=== PATIENT | female | born 1990 | race Caucasian/White ===

== ENCOUNTER 2016-12-29 05:58 | Emergency (ER) | payer OTHER ==
[~2016-12-29 05:58] MED LIST: COLACE 100MG C100 MG PO
[2016-12-29 08:12] LABS: HEMOGLOBIN 14.1 gm/dl (12.3-15.3); RED BLOOD COUNT 4.91 M/UL (4.00-5.10); WHITE BLOOD COUNT 6.9 K/UL (4.5-11.0)
[2016-12-29 08:37] LABS: BUN/CREATININE RATIO 18 (0-10)
== END 2016-12-29 10:44 | disposition home or self-care (01) ==
LOC: ER1 05:58
PROVIDERS: Emergency Medicine
DX: K29.70 Gastritis, unspecified, without bleeding (principal); F31.9 Bipolar disorder, unspecified; Z79.899 Other long term (current) drug therapy
CPT/HCPCS: 36415; 71010; 76705; 80053; 81001; 82150; 82550; 82553; 83690; 83874; 84484; 84703; 85025; 85610; 85730; 93005; 99284

== ENCOUNTER 2020-12-27 18:10 | Emergency (ER) | payer OTHER ==
[~2020-12-27 18:10] MED LIST changes: +IBU800 MG PO; +KEFLEX CAP 500500 MG PO; +KEFLEX500 MG PO; +ZOFRAN4 MG PO
[2020-12-27] MEDS ORDERED: ZITHROMAX250 MG PO (22:41)
[2020-12-27] MEDS ORDERED: ZYRTEC10 MG PO (22:41)
[2020-12-27] MEDS ORDERED: MUCINEX FA PO (22:41)
== END 2020-12-27 23:10 | disposition home or self-care (01) ==
LOC: ER1 18:10
DX: R05 Cough (principal); R09.81 Nasal congestion; J45.909 Unspecified asthma, uncomplicated; K21.9 Gastro-esophageal reflux disease without esophagitis; Z20.822 Contact with and (suspected) exposure to COVID-19; Z90.49 Acquired absence of other specified parts of digestive tract; Z88.8 Allergy status to other drugs, medicaments and biological substances; Z79.899 Other long term (current) drug therapy
CPT/HCPCS: 0240U; 71046; 99283

== ENCOUNTER 2021-02-04 08:19 | Emergency (ER) | payer OTHER ==
[~2021-02-04 08:19] MED LIST changes: +MUCINEX FA PO; +ZITHROMAX250 MG PO; +ZYRTEC10 MG PO
[2021-02-04] MEDS ORDERED: PROVENTIL HFA6.7 GM INH (10:04)
[2021-02-04] MEDS ORDERED: TESSALON PERLE100 MG PO (10:04)
== END 2021-02-04 10:08 | disposition home or self-care (01) ==
LOC: ER1 08:19
DX: J40 Bronchitis, not specified as acute or chronic (principal); Z79.899 Other long term (current) drug therapy; Z20.822 Contact with and (suspected) exposure to COVID-19
CPT/HCPCS: 0240U; 71045; 87081; 87880; 99283

== ENCOUNTER 2021-04-13 15:11 | Emergency (ER) | payer OTHER ==
[~2021-04-13 15:11] MED LIST changes: +PROVENTIL HFA6.7 GM INH; +TESSALON PERLE100 MG PO
[2021-04-13 16:01] LABS: HEMOGLOBIN 14.9 gm/dl (12.3-15.3); RED BLOOD COUNT 4.84 M/UL (4.00-5.10); WHITE BLOOD COUNT 8.1 K/UL (4.5-11.0)
[2021-04-13] MEDS ORDERED: ZOFRAN ODT 4 MG4 MG SL (16:56)
== END 2021-04-13 17:30 | disposition home or self-care (01) ==
LOC: ER1 15:11
PROVIDERS: Emergency Medicine
DX: R10.9 Unspecified abdominal pain (principal); R11.10 Vomiting, unspecified; R19.7 Diarrhea, unspecified; R51.9 Headache, unspecified; Z90.49 Acquired absence of other specified parts of digestive tract; Z20.822 Contact with and (suspected) exposure to COVID-19
CPT/HCPCS: 80053; 81001; 83690; 84703; 85025; 96374; 99284; J2405; J7030; U0002

== ENCOUNTER 2021-04-20 23:33 | Emergency (ER) | payer OTHER ==
[~2021-04-20 23:33] MED LIST changes: +ZOFRAN ODT 4 MG4 MG SL
[2021-04-21 00:51] LABS: HEMOGLOBIN 13.6 gm/dl (12.3-15.3); RED BLOOD COUNT 4.4 M/UL (4.00-5.10); WHITE BLOOD COUNT 6.3 K/UL (4.5-11.0)
[2021-04-21] MEDS ORDERED: ZOFRAN4 MG PO (03:24)
[2021-04-21] MEDS ORDERED: BENTYL 10MG CAP10 MG PO (03:24)
[2021-04-21] MEDS ORDERED: PROTONIX 40 MG40 M1 PO (03:24)
== END 2021-04-21 03:50 | disposition home or self-care (01) ==
LOC: ER1 23:33
PROVIDERS: Physician Assistant Medical
DX: R10.9 Unspecified abdominal pain (principal); R11.0 Nausea; M54.9 Dorsalgia, unspecified; Z90.49 Acquired absence of other specified parts of digestive tract
CPT/HCPCS: 72050; 72072; 80053; 81001; 83690; 85025; 96374; 99284; J2405

== ENCOUNTER 2021-04-24 09:58 | Emergency (ER) | payer OTHER ==
[~2021-04-24 09:58] MED LIST changes: +BENTYL 10MG CAP10 MG PO; +PROTONIX 40 MG40 M1 PO
[2021-04-24] MEDS ORDERED: MEDROL DOSEPAK 24 MG PO (12:44)
== END 2021-04-24 13:30 | disposition home or self-care (01) ==
LOC: ER1 09:58
DX: M54.12 Radiculopathy, cervical region (principal); Z88.8 Allergy status to other drugs, medicaments and biological substances
CPT/HCPCS: 72125; 96372; 99283; J1100; J1885

== ENCOUNTER → 2021-05-05 | Outpatient (CLI) | payer OTHER ==
[~2021-05-05] MED LIST changes: +MEDROL DOSEPAK 24 MG PO
== END ==
LOC: OPSV 20:17
DX: Z20.822 Contact with and (suspected) exposure to COVID-19 (principal)
CPT/HCPCS: U0002

== ENCOUNTER → 2021-05-22 | Outpatient (CLI) | payer OTHER | LOC: RAD 10:17 | DX: R05 Cough (principal) | CPT/HCPCS: 71046 ==

== ENCOUNTER → 2021-06-16 | Outpatient (CLI) | payer OTHER | LOC: HEART 5 10:57 | DX: R00.0 Tachycardia, unspecified (principal) ==

== ENCOUNTER 2021-08-09 12:41 | Emergency (ER) | payer OTHER ==
[2021-08-09 13:40] LABS: HEMOGLOBIN 14.7 gm/dl (12.3-15.3); RED BLOOD COUNT 4.78 M/UL (4.00-5.10)
== END 2021-08-09 16:55 | disposition home or self-care (01) ==
LOC: ER1 12:41
PROVIDERS: Physician Assistant Medical
DX: S70.11XA Contusion of right thigh, initial encounter (principal); S70.12XA Contusion of left thigh, initial encounter; Z90.49 Acquired absence of other specified parts of digestive tract; W22.8XXA Striking against or struck by other objects, initial encounter
CPT/HCPCS: 80053; 82550; 82553; 85025; 85379; 85610; 85730; 99284

== ENCOUNTER → 2021-08-11 | Outpatient (CLI) | payer OTHER ==
[2021-08-11 09:26] LABS: HEMOGLOBIN 14.4 gm/dl (12.3-15.3); RED BLOOD COUNT 4.74 M/UL (4.00-5.10); WHITE BLOOD COUNT 7.4 K/UL (4.5-11.0)
[2021-08-11 09:40] LABS: BUN/CREATININE RATIO 18 (0-10)
[2021-08-12 10:14] LABS: HCV AB 0.1 (0.0-0.9)
== END ==
LOC: LAB 07:52
PROVIDERS: Registered Nurse
DX: R53.83 Other fatigue (principal); Z79.899 Other long term (current) drug therapy
CPT/HCPCS: 36415; 80053; 80061; 82607; 83036; 84439; 84443; 85025; 85610; 85652; 86038; 86140; 86431; 86803

== ENCOUNTER → 2021-08-31 | Outpatient (CLI) | payer OTHER | LOC: RAD 14:14 | DX: M25.572 Pain in left ankle and joints of left foot (principal) | CPT/HCPCS: 73610 ==

== ENCOUNTER 2021-09-24 12:22 | Emergency (ER) | payer OTHER ==
[2021-09-24 13:09] LABS: HEMOGLOBIN 15.4 gm/dl (12.3-15.3); RED BLOOD COUNT 5.07 M/UL (4.00-5.10); WHITE BLOOD COUNT 14.8 K/UL (4.5-11.0)
[2021-09-24 13:42] LABS: BUN/CREATININE RATIO 19 (0-10)
[2021-09-24] MEDS ORDERED: ZOFRAN 4 MG TAB4 MG PO (15:52)
[2021-09-24] MEDS ORDERED: PROTONIX40 MG PO (15:52)
[2021-09-24] MEDS ORDERED: FLAGYL 250 MG250 MG PO (16:08)
[2021-09-24] MEDS ORDERED: CIPRO500 MG PO (16:08)
== END 2021-09-24 17:42 | disposition home or self-care (01) ==
LOC: ER1 12:22
PROVIDERS: Nurse Practitioner
DX: K27.9 Peptic ulcer, site unspecified, unspecified as acute or chronic, without hemorrhage or perforation (principal); Z90.49 Acquired absence of other specified parts of digestive tract; Z20.822 Contact with and (suspected) exposure to COVID-19
CPT/HCPCS: 71046; 80053; 81001; 82550; 82553; 83605; 83690; 84484; 84703; 85025; 96372; 96374; 96375; 99284; C9113; J0500; J1200; J1885; J2270; J2405; J2930; Q9967; U0003